=== PATIENT | male | born 1975 | race Caucasian/White ===

== ENCOUNTER → 2016-08-20 | Outpatient (CLI) | payer OTHER ==
[~2016-08-20] MED LIST: FENOFIBRATE160 M1 PO; LISINOPRIL5 MG PO; LO-DOSE ASPIRIN81 M1 PO; METFORMIN HCL1000 MG PO; METFORMIN HCL500 M1 PO; NAPROSYN500 MG PO; NO HOME MEDS; PRAVACHOL10 MG PO; TRULICITY0.75 MG/0. SC; ULTRAM50 MG PO
[2016-08-20 10:56] LABS: INTER. NORMALIZED RATIO 1.1; PROTHROMBIN TIME 10.8 (9.2-11.2); PTT 29.2 (25-32)
[2016-08-20 11:14] LABS: BASOPHIL COUNT 0.1 K/uL (0-0.1); EOSINOPHIL (%) 1.6 % (0-5); EOSINOPHIL COUNT 0.2 K/uL (0-0.3); HEMATOCRIT 50.3 % (38.0-50.0); IMMATURE GRANULOCYTE (%) 0.9 % (0.0-0.7); IMMATURE GRANULOCYTE COUNT 0.1 K/uL; INSTRUMENT ABS NEUTROPHIL CT 5.9 K/uL; LYMPHOCYTE COUNT 2.5 K/uL (1.0-2.8); MCH 28.2 PG (29.0-34.0); MCHC 33.6 G/DL (30.0-36.0); MCV 83.8 FL (86-99); MEAN PLAT.VOLUME 9.2 uM^3 (9.0-12.4); MONOCYTE COUNT 0.6 K/uL (0-0.8); NEUTROPHIL (%) 64.1 % (45-76); NEUTROPHIL COUNT 5.9 K/uL (1.8-6.4); PLATELET COUNT 840 K/uL (156-360); RBC DIS.WIDTH-CV 12.8 % (11.8-14.6); WHITE BLOOD COUNT 9.2 K/uL (4.1-10.2)
[2016-08-20 13:52] LABS: ANISOCYTOSIS 1+; ATYPICAL LYMPHOCYTE 1.8 %; EOSINOPHILS 1.7 % (0-5.0); LYMPHOCYTES 27.2 % (15.0-45.0); MICROCYTOSIS 1+; PLAT.SUFFICIENCY INCREASED; SEG.NEUTROPHILS 64.9 % (46.0-76.0); SMUDGE CELLS 5.3
[2016-08-23 18:13] LABS: Flow Number of Markers 22 (()); Flow Spec Viability 97 % (()); Flow Specimen Type BONE MARROW (())
== END | disposition home or self-care (01) ==
LOC: OPR 09:42 → EDSTATUS 10:00
PROVIDERS: Internal Medicine Hematology & Oncology
PROC: 07DR3ZX Extraction of Iliac Bone Marrow, Percutaneous Approach, Diagnostic (ICD-10-PCS; principal; 2016-08-20)
DX: D47.3 Essential (hemorrhagic) thrombocythemia (principal); Z87.891 Personal history of nicotine dependence; E11.9 Type 2 diabetes mellitus without complications; E78.5 Hyperlipidemia, unspecified; E66.3 Overweight; Z68.28 Body mass index [BMI] 28.0-28.9, adult; Z79.82 Long term (current) use of aspirin
CPT/HCPCS: 77012; 85007; 85025; 85610; 85730; 85999; 88184 90; 88185 90; 88189 90; J3010

== ENCOUNTER 2017-10-06 11:24 | Emergency (ER) | payer BC ==
[~2017-10-06] VITALS: Ht 172.7 cm; Wt 76.5 kg
[2017-10-06] MEDS ORDERED: KEFLEX500 MG PO (14:16)
[2017-10-06 14:25] VITALS: BP 140/91
== END 2017-10-06 14:51 | disposition home or self-care (01) ==
LOC: EME 11:24
PROC: 0HQGXZZ Repair Left Hand Skin, External Approach (ICD-10-PCS; principal; 2017-10-06)
DX: S61.215A Laceration without foreign body of left ring finger without damage to nail, initial encounter (principal); S62.605A Fracture of unspecified phalanx of left ring finger, initial encounter for closed fracture; W27.8XXA Contact with other nonpowered hand tool, initial encounter; E11.9 Type 2 diabetes mellitus without complications; Z79.84 Long term (current) use of oral hypoglycemic drugs; Z79.82 Long term (current) use of aspirin; F17.200 Nicotine dependence, unspecified, uncomplicated
CPT/HCPCS: 99281; 99283